=== PATIENT | female | born 1975 | race Caucasian/White ===

== ENCOUNTER 2020-09-28 21:47 | Emergency (ER) | payer OTHER ==
[2020-09-28 22:11] VITALS: BP 146/45; TEMP 97.7; BMI 24.2
[2020-09-28 22:46] LABS: EOS % 2.3 % (0-4.5); HEMATOCRIT 37.7 % (32.4-45.2); MCH 26.9 pg (25.7-33.7); MEAN PLT VOLUME 8.4 fl (7.5-11.1); MONO % 6.1 % (3.8-10.2); NEUT % 47.6 % (42.8-82.8); PLATELET COUNT 374 K/MM3 (134-434); RBC 4.48 M/mm3 (3.60-5.2); RDW 14.9 % (11.6-15.6); WHITE BLOOD COUNT 4.4 K/mm3 (4.0-10.8)
[2020-09-28 22:53] LABS: ALK PHOS 49 U/L (45-117); ANION GAP 11 MMOL/L (8-16); BILIRUBIN,TOTAL 0.8 mg/dl (0.2-1); CALCIUM 8.6 mg/dl (8.5-10); CHLORIDE 102 mmol/L (98-107); CO2 21 mmol/L (21-32); CREATININE 0.7 mg/dl (0.55-1.3); GLUCOSE,RANDOM 215 mg/dl (74-106); POTASSIUM 3.2 mmol/L (3.5-5.1); SGOT/AST 20 U/L (15-37); SGPT/ALT 15 U/L (13-61); SODIUM 134 mmol/L (136-145); TOT PROT 6.7 g/dl (6.4-8.2)
[2020-09-29] MEDS ORDERED: POTASSIUM CHLORIDE TABS 20 MEQ TABLET.ER (FP) PO ONE ×2 (00:21→00:24)
[2020-09-29 00:30] VITALS: PULSE 90
== END 2020-09-29 00:30 | disposition home or self-care (01) ==
LOC: FER 21:47
DX: R00.2 Palpitations (principal); E87.6 Hypokalemia
CPT/HCPCS: 36415; 80053; 82550; 84484; 85025; 93005; 99284-25